=== PATIENT | female | born 1985 | race American Indian/Alaskan Native ===

== ENCOUNTER 2018-02-02 13:06 | Emergency (ER) | payer OTHER ==
[2018-02-02 14:56] LABS: HCG Qualitative,Urine Negative (Negative)
[2018-02-02] MEDS ORDERED: TYLENOL PO ONE (19:30)
[2018-02-02] MEDS ORDERED: DELTASONE PO ONE (19:30)
[2018-02-02] MEDS ORDERED: PEPCID PO ONE (19:30)
--- NOTE | 2018-02-02 19:30 | Emergency Department Report ---
HPI - General Chief Complaint: Headache Time Seen by Provider: 02/02/18 19:29 - HPI HPI: Patient reported rash in both side of face and also headache this located frontally. Rash and neck. Headache is 6 out of 10 and she says she's never had a headache before. Rash started 2 days ago and not using any medication for rash. She reports itching itchy but no pain. Denies any sore throat, cough or congestion. Denies any swelling of tongue. Patient without any respiratory symptoms. Denies any difficulty breathing. She thinks it's a soap in her requirement that she use that causes a rash but does not know what is causing her headache. She says she has not had a headache like this in the past. Headache is located in both side of head and feels like pressure and achy. She took Aleve at home for headache. Denies any fever or chills. Denies any nausea or vomiting. Denies any dizziness or blurred vision. She denies any head injury. Abdomen neck or back pain. Denies any abdominal pain. Denies any numbness or tingling to extremities. ED Past Medical Hx - Past Medical History Previous Medical History?: No - Surgical History Past Surgical History?: No - Family History Family history: no significant - Social History Smoking Status: Never Smoker Substance Use Type: None - Medications Home Medications: Home Medications Medication Instructions Recorded Confirmed Last Taken Type Ibuprofen [Motrin] 600 mg PO Q8H PRN #12 tablet 02/02/18 Unknown Rx diphenhydrAMINE [Benadryl CAP] 50 mg PO Q8HR PRN #12 capsule 02/02/18 Unknown Rx methylPREDNISolone [Medrol Dose 4 mg PO QAM 6 Days #1 pack 02/02/18 Unknown Rx Pipo] ED Review of Systems ROS: Stated complaint: HEADACHE Other details as noted in HPI Comment: All other systems reviewed and negative Constitutional: no symptoms reported Eyes: denies: eye discharge ENT: denies: ear pain, throat pain, dental pain, hearing loss, epistaxis, congestion Respiratory: no symptoms reported Cardiovascular: denies: chest pain, palpitations, dyspnea on exertion, edema, syncope, paroxysmal nocturnal dyspnea Gastrointestinal: denies: abdominal pain, nausea, vomiting, diarrhea, constipation Genitourinary: denies: urgency, hematuria, abnormal menses Musculoskeletal: denies: back pain, joint swelling, arthralgia, myalgia Skin: rash, pruritus Neurological: headache. denies: weakness, numbness, paresthesias, confusion, abnormal gait, vertigo Physical Exam - Physical Exam Vital Signs: Vital Signs 02/02/18 13:24 Temperature 98 F Pulse Rate 68 Respiratory 16 Rate Blood Pressure 115/47 O2 Sat by Pulse 100 Oximetry General: This is a 32-year-old female well-nourished with follow-up in no acute distress. Physical Exam: Head: Normocephalic, atraumatic, no abrasion, no bruising and no contusion. Eyes: Biateral pupils equal and reactive to light, bilateral EOM intact.. Bilateral conjunctival and sclera without injection, normal accommodation. No nystagmus Mouth: Mucosa moist, no pharyngeal exudate or erythema. No peritonsillar abscesses. Uvula is midline and oral airways patent. Ears: Bilateral TMs pearly pepper Bilateral EAC without any redness swelling or drainage. No mastoid bone tenderness Nose: fuad nasal mucosa normal ,Maxillary and frontal sinuses non-tender to palpate. Neck: Supple, No Cervical adenopathy, full range of motion and no C-spine tenderness. No swelling or tracheal deviation normal reflexes Cardiovascular: S1, S2. Regular rate and rhythm. No murmur. Capillary refill is less then 3 seconds. Lungs: Clear to auscultate bilaterally. No rhonchi, wheezes or rales. No chest wall tenderness. No chest contusion. No bruising to chest. MSK: Strength 5/5 in all extremities. No joint deformity or crepitus. Normal inspection. Full range of motion to all extremities. No laceration, abrasion or ecchymotic area noted. Abdomen: Non-tender to palpate in all quadrants, no guarding or rebound tenderness, positive bowel sounds in all quadrants. No CVA tenderness. No hernia, bruit or mass. No rigidity or distention. Extremities: No clubbing, cyanosis or edema. +2 pulses. No neurovascular compromise Skin: Noted maculopapular rash to bilateral facial area and anterior neck. No erythema or swelling. Nontender to palpate. No vesicles or lesions noted. Neurological: GCS at 15, Pt is alert and oriented 3 speech is clear . Bilateral hand bench molder strong and equal. Normal gait. Negative Romberg and no pronator drift. Normal Reflexes. No motor or sensory deficit Back: No vertebral tenderness, no paraspinal tenderness. Ambulates without any difficulties. Psych: Normal mood and behavior ED Course Vital Signs 02/02/18 13:24 Temperature 98 F Pulse Rate 68 Respiratory 16 Rate Blood Pressure 115/47 O2 Sat by Pulse 100 Oximetry - Reevaluation(s) Reevaluation #1: 02/02/18 19:40 Patient given Deltasone 60 mg by mouth, Pepcid 40 mg by mouth to treat rash. She is here by her son also she cannot get Benadryl. She was also given Tylenol 975 mg by mouth for headache. Patient awaiting CT scan of the head Reevaluation #2: 02/02/18 20:45 Rashes stable. Still awaiting CT scan of the head results ED Medical Decision Making - Lab Data Lab Results 02/02/18 Range/Units 14:20 Urine HCG, Qual Negative (Negative) - Radiology Data Radiology results: report reviewed CT scan of the brain without contrast revealed no acute intracranial findings. - Medical Decision Making ED course: PT here report that she is having headache and also rash to face. Physical findings for maculopapular rash which appears to be contact dermatitis. She says she is having headache on both sides of her head and this is new for her therefore she had a CT scan done. Urine is negative. Patient received Deltasone 60 mg and Pepcid 40 mg by mouth emergency room for contact dermatitis. She received Tylenol 975 mg for headache. Patient was relief of headache. Patient and also said itching has better. CT scan of the head reveals no acute intracranial processes. This was explained to patient. I discussed diagnosis and treatment plan and she voiced understanding and she is to follow-up with [facility] on Monday. Discharged home with Medrol Dosepak, Motrin and Benadryl Critical care attestation.: If time is entered above; I have spent that time in minutes in the direct care of this critically ill patient, excluding procedure time. ED Disposition Clinical Impression: Pruritic rash Headache Qualifiers: Headache type: unspecified Headache chronicity pattern: acute headache Intractability: not intractable Qualified Code(s): R51 - Headache Contact dermatitis Qualifiers: Contact dermatitis type: unspecified Contact dermatitis trigger: unspecified trigger Qualified Code(s): L25.9 - Unspecified contact dermatitis, unspecified cause Disposition: DC-01 TO HOME OR SELFCARE Is pt being admited?: No Does the pt Need Aspirin: No Condition: Stable Instructions: Contact Dermatitis (ED), Acute Headache (ED), Itchy Skin (ED) Additional Instructions: Please see medication for rash as instructed and Please do not drive or operate heavy machinery while taking Benadryl as this medication causes drowsiness take Zyrtec [id number] during the day if here driving this will help with itching Take Motrin for headache. Increase fluid intake Please return to the emergency room if his symptoms worsen Follow up with primary care physician at [place] Prescriptions: diphenhydrAMINE [Benadryl CAP] 50 mg PO Q8HR PRN #12 capsule PRN Reason: Allergic Reaction Ibuprofen [Motrin] 600 mg PO Q8H PRN #12 tablet PRN Reason: Pain methylPREDNISolone [Medrol Dose Pipo] 4 mg PO QAM 6 Days #1 pack Referrals: [facility] [Outside] - 02/05/18 [facility] [Provider Group] - 02/05/18 Forms: Work/School Release Form(ED)
--- NOTE | 2018-02-02 21:31 | Cat Scan Report ---
FINAL REPORT PROCEDURE: CT HEAD/BRAIN WO CON TECHNIQUE: Computerized tomography of the head was performed without contrast material. HISTORY: headache new onset COMPARISON: No prior studies are available for comparison. FINDINGS: Skull and scalp: Normal. Paranasal sinuses: Normal. Ventricles and subarachnoid spaces: Normal. Cerebrum: No evidence of hemorrhage, acute infarction or mass . Cerebellum and brainstem: No evidence of hemorrhage, acute infarction or mass. Vasculature: Normal. Comments: None. IMPRESSION: Normal Examination
[2018-02-02 22:18] VITALS: BP 118/61
== END 2018-02-02 22:22 | disposition home or self-care (01) ==
LOC: ED 13:06
DX: R51 Headache (principal); L25.9 Unspecified contact dermatitis, unspecified cause
CPT/HCPCS: 70450; 81025; 99284; J7512

== ENCOUNTER 2021-05-29 09:54 | Emergency (ER) | payer SELFPAY ==
[2021-05-29 10:02] VITALS: BP 119/77
== END 2021-05-29 13:42 | disposition home or self-care (01) ==
LOC: ED 09:54
DX: O20.0 Threatened abortion (principal); O26.891 Other specified pregnancy related conditions, first trimester; D69.6 Thrombocytopenia, unspecified; R79.89 Other specified abnormal findings of blood chemistry; Z3A.12 12 weeks gestation of pregnancy; Z79.899 Other long term (current) drug therapy; Z98.890 Other specified postprocedural states
CPT/HCPCS: 36415; 76801; 80053; 81001; 84702; 85025; 86900; 86901